=== PATIENT | female | born 1990 | race Caucasian/White ===

== ENCOUNTER → 2024-02-29 | Outpatient (CLI) | payer MEDICAID, OTHER ==
[2024-02-29 13:54] VITALS: BP 128/80; PULSE 63; RESP 16; TEMP 98.2
[2024-02-29] MEDS: SODIUM CHLORIDE 0.9% 500 ML 500 ML in EMPTY BAG 1 BAG IV PRN (14:01)
== END ==
LOC: PROCWHC3 13:42
PROVIDERS: ATTEND Physician Assistant
DX: D50.9 Iron deficiency anemia, unspecified (principal)
CPT/HCPCS: 96365